=== PATIENT | male | born 1975 | race Caucasian/White ===

== ENCOUNTER 2025-02-06 12:23 | Emergency (ER) | payer OTHER, SELFPAY ==
[2025-02-06 12:27] VITALS: BP 157/90; PULSE 92; RESP 18; TEMP 37.2; O2SAT 98
[2025-02-06 12:41] LABS: EDSTREPNEGPOS1 Negative (Negative)
[2025-02-06 12:52] LABS: EDCOVIDSCREEN Negative (Negative); EDINFLUASCREEN Negative (Negative); EDINFLUBSCREEN Negative (Negative)
--- NOTE | 2025-02-06 13:08 | ED.URI ---
HPI - URI/Sore Throat General Chief Complaint: Upper Respiratory Infection Stated Complaint: sore throat Time Seen by Provider: 02/06/25 12:45 Source: patient and RN notes reviewed Mode of arrival: ambulatory Limitations: no limitations History of Present Illness HPI Narrative: 49-year-old male patient presents [facility] complaining of upper respiratory symptoms for 1 week. Patient says symptoms are not getting much better, reports they have gotten worse. Patient reports cough, congestion, sore throat, mucopurulent nasal drainage, voice hoarseness, and fevers. Patient denies any sweats, body aches, chills, chest pain difficulty breathing, wheezing, shortness of breath, nausea, vomiting, diarrhea, abdominal pain, or other symptoms. Patient denies any significant past medical history. Patient is taking ibuprofen and Mucinex DM to help with symptoms for Related Data Home Medications ?Medication ?Instructions ?Recorded ?Confirmed ?Last Taken ?Type amitriptyline 25 mg tablet mg 02/06/25 Unknown History dicyclomine 20 mg tablet mg 02/06/25 Unknown History omeprazole 20 mg capsule,delayed mg 02/06/25 Unknown History release Allergies Allergy/AdvReac Type Severity Reaction Status Date / Time No Known Allergies Allergy Verified 02/06/25 12:34 Review of Systems Review of Systems: CONSTITUTIONAL: Positive for fevers. Negative for chills, body aches, or sweats. EYES: Denies visual changes, redness, or discharge. ENT: Positive for mucopurulent nasal drainage, congestion, sore throat. Negative for rhinorrhea or otalgia. CARDIOVASCULAR: Denies chest pain, palpitations, or edema. RESPIRATORY: Positive for cough. Negative for dyspnea or wheezing. GASTROINTESTINAL: Denies abdominal pain, nausea, vomiting, or diarrhea. GENITOURINARY: Denies dysuria or hematuria. SKIN: Denies rash or itching. MUSCULOSKELETAL: Denies back pain, joint pain, or myalgia. NEUROLOGIC: Denies headache, numbness, or weakness. PSYCHIATRIC: Denies anxiety or depression. All other systems reviewed are negative, except as documented in HPI. PMFSH Comments At the time of my signature, I reviewed and agree with the nursing past medical, surgical, social, and family history. There is no relevant family history pertinent to the patient complaint. Exam Narrative: GENERAL: This is a well-nourished, well-developed adult, in no apparent distress. They are non ill-appearing, nontoxic appearing. HEAD: normocephalic, atraumatic. EYES: Sclera clear/white. Vision is grossly intact. Conjunctiva normal bilaterally. Extraocular movements intact. EARS: External ears normal, auditory canals clear and without drainage, TMs without erythema or perforation. Hearing grossly intact. NOSE: External nose normal with no obvious nasal discharge, nasal turbinates erythematous with exudate, no rhinorrhea. THROAT: Mucous membranes moist, posterior pharynx erythematous without exudate. Uvula is midline. Postnasal drip present. NECK: Neck supple, non-tender without lymphadenopathy, masses or thyromegaly. CARDIOVASCULAR: Regular rate and rhythm without murmurs, gallops, or rubs. RESPIRATORY: Clear to auscultation. Breath sounds equal bilaterally. No wheezes, rales, or rhonchi. SKIN: warm, Dry, intact with no suspicious lesions or rash, good texture and turgor. NEURO: awake, alert, and oriented to person, place and time. There were no obvious focal neurologic abnormalities. EXTREMITIES: No joint tenderness, effusion, or edema noted. BACK: Nontender without deformity. Course Course Emergency Course: Portions of this record may have been created with voice recognition software Level of Care: Express Care Visit Vital Signs Vital signs: Vital Signs Temperature 99.0 F 02/06/25 12:27 Pulse Rate 92 02/06/25 12:27 Respiratory Rate 18 02/06/25 12:27 Blood Pressure 157/90 H 02/06/25 12:27 Pulse Oximetry 98 02/06/25 12:27 Oxygen Delivery Room Air 02/06/25 12:27 Temperature 99.0 F 02/06/25 12:27 Pulse Rate 92 02/06/25 12:27 Respiratory Rate 18 02/06/25 12:27 Blood Pressure 157/90 H 02/06/25 12:27 Pulse Oximetry 98 02/06/25 12:27 Oxygen Delivery Room Air 02/06/25 12:27 MDM - URI/Sore Throat MDM Narrative Medical decision making narrative: Rapid COVID, flu, strep were negative. A throat culture is pending. Given patient's length of symptoms and worsening symptoms likely has bacterial sinusitis. Treat with Augmentin. Discussed physical exam findings. Advised supportive measures and signs/symptoms to go to the ER. Pt is appropriate for outpt treatment and f/u. Differential Diagnosis Differential diagnosis: Likely upper respiratory infection, sinusitis, viral infection and pharyngitis Lab Data Attestation: I reviewed the patient's lab results. Labs: Lab Results 02/06/25 02/06/25 Range/Units 12:40 12:49 POC Influenza A Ag Negative (Negative) POC Influenza B Ag Negative (Negative) POC SARS CoV-2 Ag Negative (Negative) POC Grp A Strep Screen Negative (Negative) Discharge Plan Discharge Clinical Impression: Sinusitis Qualifiers: Sinusitis location: unspecified location Chronicity: acute Recurrence: non-recurrent Qualified Code(s): J01.90 - Acute sinusitis, unspecified Patient Disposition: Home Condition: Stable Instructions: Antibiotic Form, Sinusitis (ED) Additional Instructions: Take the antibiotics as directed and complete the course even if you start to feel better. You may use a Neti pot saline rinse 3 times a day with lukewarm distilled water Continue to take Tylenol or Motrin as needed for pain or fevers. Use a humidifier or vaporizer at night. Drink plenty of water. 8-10 glasses per day. Use flonase 2 times per day for 5 days then as needed Take mucinex 2 times per day and be sure to take with 8oz of water. Follow up with Primary provider in 3-5 days Please go to the ER if he develops any difficulty breathing, chest pain, vomiting, worsening symptoms, or any other concerns Patient Language: Macedonian Prescriptions: New amoxicillin-pot clavulanate 875-125 mg tablet 1 tablet PO Q12H 7 Days Qty: 14 0RF No Action amitriptyline 25 mg tablet dicyclomine 20 mg tablet omeprazole 20 mg capsule,delayed release(DR/EC) Follow-up/Referrals: Harms,Agustin Garcia M.D. [Primary Care Provider] Time of Disposition: 12:57
== END 2025-02-06 13:00 | disposition home or self-care (01) ==
PROVIDERS: PCP Family Medicine
DX: J01.90 Acute sinusitis, unspecified (principal); Z20.822 Contact with and (suspected) exposure to COVID-19; K21.9 Gastro-esophageal reflux disease without esophagitis
CPT/HCPCS: 87081; 87426; 87804; 87880; 99203; G0463